=== PATIENT | female | born 1955 | race Caucasian/White ===

== ENCOUNTER 2020-01-30 11:50 | Emergency (ER) | payer OTHER ==
[2020-01-30] MEDS ORDERED: Ondansetron 4 MG/2 ML SDV IVPUSH ONE ×2 (12:12→14:48)
[2020-01-30] MEDS ORDERED: Pantoprazole 40 MG Vial IVPUSH ONE (12:12)
[2020-01-30] MEDS ORDERED: Famotidine 20 MG/2 ML SDV IVPUSH ONE (12:12)
[2020-01-30] MEDS ORDERED: Sodium Chloride 0.9% 10 ML Syringe FLUSH PRN (12:12)
--- NOTE | 2020-01-30 12:12 | EDM.PDOC ---
ED HPI GENERAL MEDICAL PROBLEM - General Chief Complaint: Abdominal Pain Stated Complaint: abd pain/constipation Time Seen by Provider: 01/30/20 12:05 Source of Information: Reports: Patient, Old Records (No [facility] records available) History Limitations: Reports: No Limitations - History of Present Illness INITIAL COMMENTS - FREE TEXT/NARRATIVE: The patient was brought to the emergency room via private automobile by her for evaluation of a 1-2 week history of progressive severe constipation. She began having some nonspecific abdominal cramping about one week ago with OTC laxatives used since that time. Symptoms have worsened since , including nausea, fever, chills and 01/17 mostly lower abdominal cramping. She has not had an excellent bowel movement for about 2 weeks with only a very small BM about 2 days ago. Symptoms have been refractory to OTC fiber and laxatives with patient taking Colace on a twice a day basis, MiraLAX and glycerin suppositories on 01/27 and a fleets enema yesterday evening. No recent history of heartburn, nausea, diarrhea, melena, gross hematochezia, or any food intolerance, including fatty foods, etc.. She denies associated hematuria, colic , UTI symptoms. The patient also denies any recent cough, wheezing, dyspnea, etc.. The patient denies any chest pain/pressure, heart flutter, dizziness, orthostasis, orthopnea, diaphoresis, paresthesias, recent decreased exercise tolerance, or any other anginal-type symptoms. The patient did have a migraine headache earlier this morning with OTC Excedrin Migraine taken both at 3 AM and 7 AM today. Her headache has resolved prior to arrival to this facility. Onset: Gradual Onset Date: 01/28/20 Duration: Constant, Getting Worse Location: Reports: Abdomen. Denies: Head, Face, Neck, Chest, Back, Pelvis, Upper Extremity, Left, Upper Extremity, Right, Lower Extremity, Left, Lower Extremity, Right, Radiates to Quality: Reports: Same as Previous Episode, Other (Cramping) Severity: Moderate Improves with: Reports: None Worsens with: Reports: None Context: Reports: Other (As above). Denies: Sick Contact, Trauma Associated Symptoms: Reports: Fever/Chills, Headaches, Nausea/Vomiting (No emesis). Denies: Confusion, Chest Pain, Cough, Diaphoresis, Loss of Appetite, Malaise, Rash, Shortness of Breath, Syncope, Weakness Treatments ANESTHESIOLOGY TECH: Reports: Other Medication(s) Abdomen Pain Score (Numeric/FACES): 5 - Related Data Allergies Allergy/AdvReac Type Severity Reaction Status Date / Time losartan [From Cozaar] Allergy Cough Verified 01/30/20 11:54 Home Meds: Home Meds Aspirin/Acetaminophen/Caffeine [Excedrin Migraine Caplet] 1 tab PO ASDIRECTED PRN 01/30/20 [History] Docusate Sodium [Colace] 2 cap PO DAILY 01/30/20 [History] Fluticasone/Umeclidin/Vilanter [Trelegy Ellipta 100-62.5-25] 1 inh INH DAILY [History] Glimepiride 2 mg PO DAILY 01/30/20 [History] Magnesium Oxide 400 mg PO BID #60 tab 01/30/20 [Rx] Non-Formulary Medication [NF Drug] 0.25 mg SUBCUT Q7D 01/30/20 [History] Omeprazole 20 mg PO DAILY 01/30/20 [History] Simvastatin 2.5 mg PO BEDTIME 01/30/20 [History] amLODIPine Besylate [Amlodipine Besylate] 5 mg PO DAILY 01/30/20 [History] polyethylene glycoL 3350 [MiraLAX] 1 dose PO DAILY PRN 01/30/20 [History] Past Medical History HEENT History: Reports: Impaired Vision, Other (See Below) Other HEENT History: Patient wears glasses. Cardiovascular History: Reports: High Cholesterol, Hypertension Respiratory History: Reports: COPD Gastrointestinal History: Reports: Chronic Constipation, GERD, Hiatal Hernia. Denies: Colon Polyp, Diverticulosis Genitourinary History: Reports: Chronic Renal Insuffiency, Diabetic Nephropathy TRAIN BRAKER History: Denies: Dysfunctional Uterine Bleeding, Endometriosis, Prolapsed Uterus LMP (Approximate): Other (See Below) Other TRAIN BRAKER History: Surgical menopause. Neurological History: Reports: Headaches, Chronic, Migraines Endocrine/Metabolic History: Reports: Diabetes, Type II, Obesity/BMI 30+. Denies: Diabetes, Gestational, Diabetes, Type I, Diabetes Mellitus, Type 3c, Hypothyroidism, IDDM - Past Surgical History GI Surgical History: Reports: Colonoscopy, EGD, Hernia, Abdominal, Other (See Below). Denies: Appendectomy, Cholecystectomy, Polypectomy Other GI Surgeries/Procedures: Glenn fundoplication with concomitant ventral abdominal hernia repairs 2 in about 2012. EGD and colonoscopy in about 2012. Female Surgical History: Reports: Hysterectomy, Other (See Below). Denies: Salpingo-Oophorectomy Other Female Surgeries/Procedures: Hysterectomy for unknown reason in 2013. 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 ED EXAM, GI/ABD - Physical Exam Exam: See Below Exam Limited By: No Limitations General Appearance: Alert, WD/WN, No Apparent Distress Eyes: Bilateral: Normal Appearance (No nystagmus. Patient wearing glasses), EOMI (PERRLA) Ears: Normal External Exam, Normal Canal, Hearing Grossly Normal, Normal TMs Nose: Normal Inspection, Normal Mucosa, No Blood Throat/Mouth: Normal Inspection, Normal Lips, Normal Teeth, Normal Gums, Normal Oropharynx, Normal Voice, No Airway Compromise. No: Dysphagia, Perioral Cyanosis Head: Atraumatic, Normocephalic. No: Facial Swelling, Facial Tenderness, Sinus Tenderness Neck: Normal Inspection, Supple, Non-Tender, Full Range of Motion. No: Carotid Bruit, Lymphadenopathy (L), Lymphadenopathy (R), Thyromegaly Respiratory/Chest: No Respiratory Distress, Lungs Clear, Normal Breath Sounds, No Accessory Muscle Use, Chest Non-Tender. No: Pleural Rub, Retractions Cardiovascular: Normal Peripheral Pulses, Regular Rate, Rhythm, No Edema, No Gallop, No JVD, No Murmur, No Rub. No: Gallop/S3, Gallop/S4, Friction Rub GI/Abdominal Exam: Normal Bowel Sounds, Soft, Non-Tender, No Organomegaly, No Distention, No Abnormal Bruit, No Mass, Pelvis Stable. No: Guarding (Female) Exam: Deferred Rectal (Female) Exam: Heme - Stool, Hemorrhoids (Grade 2 internal/external). No : Black Stool, Bloody Stool, Fecal Impaction (Minimal stool in vault), Rectal Fissure, Tenderness (No John space tenderness) Back Exam: Normal Inspection, Full Range of Motion. No: CVA Tenderness (L), CVA Tenderness (R), Muscle Spasm, Paraspinal Tenderness, Vertebral Tenderness Extremities: Normal Inspection, Normal Range of Motion, Non-Tender, No Pedal Edema, Normal Capillary Refill. No: Amy's Sign Neurological: Alert, Oriented, CN II-XII Intact, Normal Cognition, Normal Gait, Normal Reflexes (Negative Babinski's), No Motor/Sensory Deficits Psychiatric: Normal Affect, Normal Mood Skin Exam: Warm, Dry, Intact, Normal Color, No Rash. No: Diaphoretic, Ecchymosis, Jaundice, Petechiae, Wound/Incision Lymphatic: No Adenopathy Course - Vital Signs Last Recorded V/S: Last Vital Signs Temp 36.5 C 01/30/20 11:54 Pulse 96 01/30/20 14:24 Resp 18 01/30/20 12:36 BP 164/89 H 01/30/20 14:24 Pulse Ox 98 01/30/20 14:24 Vital Signs - 24 hr 01/30/20 01/30/20 01/30/20 11:54 12:12 12:22 Temperature [ 36.5 C Oral] Pulse, 83 87 88 Peripheral [ Right Pulse Oximetry] Respiratory 16 16 17 Rate Blood Pressure 176/92 H 177/102 H 157/97 H [Left Upper Arm ] O2 Sat by Pulse 98 98 98 Oximetry 01/30/20 01/30/20 01/30/20 12:36 13:24 13:39 Temperature [ Oral] Pulse, 89 93 89 Peripheral [ Right Pulse Oximetry] Respiratory 18 Rate Blood Pressure 170/95 H 154/83 H 155/91 H [Left Upper Arm ] O2 Sat by Pulse 98 98 94 L Oximetry 01/30/20 01/30/20 01/30/20 13:54 14:09 14:24 Temperature [ Oral] Pulse, 91 97 96 Peripheral [ Right Pulse Oximetry] Respiratory Rate Blood Pressure 154/90 H 166/90 H 164/89 H [Left Upper Arm ] O2 Sat by Pulse 97 97 98 Oximetry - Orders/Labs/Meds Orders: Active Orders 24 hr Category Date Time Status Blood Glucose Check, Bedside [RC] STAT Care 01/30/20 14:49 Active Cardiac Monitoring [RC] . DIRECTED Care 01/30/20 12:10 Active Peripheral IV Care [RC] . DIRECTED Care 01/30/20 12:12 Active Abdomen Series w Chest 1V [CR] Stat Exams 01/30/20 12:12 Taken CULTURE URINE [RM] Stat Lab 01/30/20 14:30 Received Obtain Past Medical Record [OM.PC] Urgent Oth 01/30/20 12:12 Active Peripheral IV Insertion Adult [OM.PC] Stat Oth 01/30/20 12:12 Ordered Resuscitation Status Stat Resus Stat 01/30/20 12:12 Ordered Labs: Laboratory Tests 01/30/20 01/30/20 01/30/20 Range/Units 12:20 12:20 12:20 WBC 10.2 (4.0-10.2) K/uL RBC 4.49 (3.77-5.09) M/uL Hgb 13.7 (11.7-15.5) g/dL Hct 40.0 (34.0-46.0) % MCV 89.1 (84.0-98.0) fL MCH 30.5 (28.2-33.3) pg MCHC 34.3 (31.7-36.0) g/dL RDW 12.4 (11.2-14.1) % Plt Count 188 (150-350) K/uL Neut % (Auto) 84.4 H (45.0-80.0) % Lymph % (Auto) 12.5 (10.0-50.0) % Daniels % (Auto) 2.8 (2.0-14.0) % Eos % (Auto) 0.2 (0.0-5.0) % Baso % (Auto) 0.1 (0.0-2.0) % Neut # (Auto) 8.59 H (1.40-7.00) K/uL Lymph # (Auto) 1.27 (0.50-3.50) K/uL Daniels # (Auto) 0.28 (0.00-1.00) K/uL Eos # (Auto) 0.02 (0.00-0.50) K/uL Baso # (Auto) 0.01 (0.00-0.20) K/uL PT 10.5 (9.5-12.0) SEC INR 1.0 APTT 22.7 L (24.5-32.8) SEC Sodium (136-145) mmol/L Potassium (3.5-5.1) mmol/L Chloride (98-107) mmol/L Carbon Dioxide (21.0-32.0) mmol/L BUN (7-18) mg/dL Creatinine (0.51-1.17) mg/dL Est Cr Clr Drug Dosing Estimated GFR (MDRD) mL/min Glucose (74-106) mg/dL POC Glucose (65-110) mg/dl Lactic Acid (0.4-2.0) mmol/L Uric Acid (2.6-7.2) mg/dL Calcium (8.5-10.1) mg/dL Magnesium (1.8-2.4) mg/dL Total Bilirubin (0.2-1.0) mg/dL AST (15-37) U/L ALT (12-78) U/L Alkaline Phosphatase (46-116) IU/L Total Protein (6.4-8.2) g/dL Albumin (3.4-5.0) g/dL Amylase 39 (25-115) U/L Lipase (73-393) U/L Specimen Type Urine Color Urine Appearance Urine pH (5.0-9.0) Ur Specific [place] (1.005-1.030) Urine Protein (NEGATIVE) mg/dL Urine Glucose (UA) (NEGATIVE) mg/dL Urine Ketones (NEGATIVE) mg/dL Urine Occult Blood (NEGATIVE) Urine Nitrite (NEGATIVE) Urine Bilirubin (NEGATIVE) Urine Urobilinogen (0.2-1.0) E.U./dL Ur Leukocyte Esterase (NEGATIVE) Urine RBC /HPF Urine WBC /HPF Ur Epithelial Cells /LPF Urine Bacteria (NONE TO FEW) /HPF 01/30/20 01/30/20 01/30/20 Range/Units 12:20 12:20 14:30 WBC (4.0-10.2) K/uL RBC (3.77-5.09) M/uL Hgb (11.7-15.5) g/dL Hct (34.0-46.0) % MCV (84.0-98.0) fL MCH (28.2-33.3) pg MCHC (31.7-36.0) g/dL RDW (11.2-14.1) % Plt Count (150-350) K/uL Neut % (Auto) (45.0-80.0) % Lymph % (Auto) (10.0-50.0) % Daniels % (Auto) (2.0-14.0) % Eos % (Auto) (0.0-5.0) % Baso % (Auto) (0.0-2.0) % Neut # (Auto) (1.40-7.00) K/uL Lymph # (Auto) (0.50-3.50) K/uL Daniels # (Auto) (0.00-1.00) K/uL Eos # (Auto) (0.00-0.50) K/uL Baso # (Auto) (0.00-0.20) K/uL PT (9.5-12.0) SEC INR APTT (24.5-32.8) SEC Sodium 140 (136-145) mmol/L Potassium 3.7 (3.5-5.1) mmol/L Chloride 101 (98-107) mmol/L Carbon Dioxide 29.0 (21.0-32.0) mmol/L BUN 29 H (7-18) mg/dL Creatinine 1.34 H (0.51-1.17) mg/dL Est Cr Clr Drug Dosing TNP Estimated GFR (MDRD) 40 mL/min Glucose 167 H (74-106) mg/dL POC Glucose (65-110) mg/dl Lactic Acid 1.0 (0.4-2.0) mmol/L Uric Acid 6.7 (2.6-7.2) mg/dL Calcium 10.1 (8.5-10.1) mg/dL Magnesium 1.1 L (1.8-2.4) mg/dL Total Bilirubin 0.5 (0.2-1.0) mg/dL AST 41 H (15-37) U/L ALT 42 (12-78) U/L Alkaline Phosphatase 98 (46-116) IU/L Total Protein 7.0 (6.4-8.2) g/dL Albumin 4.1 (3.4-5.0) g/dL Amylase (25-115) U/L Lipase 164 (73-393) U/L Specimen Type Urinvoid Urine Color Light yellow Urine Appearance Clear Urine pH 7.0 (5.0-9.0) Ur Specific [place] 1.020 (1.005-1.030) Urine Protein Trace H (NEGATIVE) mg/dL Urine Glucose (UA) Negative (NEGATIVE) mg/dL Urine Ketones Trace H (NEGATIVE) mg/dL Urine Occult Blood Trace-lysed H (NEGATIVE) Urine Nitrite Negative (NEGATIVE) Urine Bilirubin Negative (NEGATIVE) Urine Urobilinogen 0.2 (0.2-1.0) E.U./dL Ur Leukocyte Esterase Negative (NEGATIVE) Urine RBC 0-5 /HPF Urine WBC 0-5 /HPF Ur Epithelial Cells Few /LPF Urine Bacteria Few (NONE TO FEW) /HPF 01/30/20 Range/Units 14:52 WBC (4.0-10.2) K/uL RBC (3.77-5.09) M/uL Hgb (11.7-15.5) g/dL Hct (34.0-46.0) % MCV (84.0-98.0) fL MCH (28.2-33.3) pg MCHC (31.7-36.0) g/dL RDW (11.2-14.1) % Plt Count (150-350) K/uL Neut % (Auto) (45.0-80.0) % Lymph % (Auto) (10.0-50.0) % Daniels % (Auto) (2.0-14.0) % Eos % (Auto) (0.0-5.0) % Baso % (Auto) (0.0-2.0) % Neut # (Auto) (1.40-7.00) K/uL Lymph # (Auto) (0.50-3.50) K/uL Daniels # (Auto) (0.00-1.00) K/uL Eos # (Auto) (0.00-0.50) K/uL Baso # (Auto) (0.00-0.20) K/uL PT (9.5-12.0) SEC INR APTT (24.5-32.8) SEC Sodium (136-145) mmol/L Potassium (3.5-5.1) mmol/L Chloride (98-107) mmol/L Carbon Dioxide (21.0-32.0) mmol/L BUN (7-18) mg/dL Creatinine (0.51-1.17) mg/dL Est Cr Clr Drug Dosing Estimated GFR (MDRD) mL/min Glucose (74-106) mg/dL POC Glucose 125 H (65-110) mg/dl Lactic Acid (0.4-2.0) mmol/L Uric Acid (2.6-7.2) mg/dL Calcium (8.5-10.1) mg/dL Magnesium (1.8-2.4) mg/dL Total Bilirubin (0.2-1.0) mg/dL AST (15-37) U/L ALT (12-78) U/L Alkaline Phosphatase (46-116) IU/L Total Protein (6.4-8.2) g/dL Albumin (3.4-5.0) g/dL Amylase (25-115) U/L Lipase (73-393) U/L Specimen Type Urine Color Urine Appearance Urine pH (5.0-9.0) Ur Specific [place] (1.005-1.030) Urine Protein (NEGATIVE) mg/dL Urine Glucose (UA) (NEGATIVE) mg/dL Urine Ketones (NEGATIVE) mg/dL Urine Occult Blood (NEGATIVE) Urine Nitrite (NEGATIVE) Urine Bilirubin (NEGATIVE) Urine Urobilinogen (0.2-1.0) E.U./dL Ur Leukocyte Esterase (NEGATIVE) Urine RBC /HPF Urine WBC /HPF Ur Epithelial Cells /LPF Urine Bacteria (NONE TO FEW) /HPF Urine specimen set up for culture and sensitivity. Meds: Medications Discontinued Medications Generic Name Dose Route Start Last Admin Trade Name Freq PRN Reason Stop Dose Admin Famotidine 40 mg 01/30/20 12:12 01/30/20 12:31 Pepcid IVPUSH 01/30/20 12:13 40 mg ONETIME ONE Administration Lactated Ringer's 1,000 mls @ 999 mls/hr 01/30/20 12:12 01/30/20 13:25 Ringers, Lactated IV 01/30/20 13:12 999 mls/hr .BOLUS ONE Administration Magnesium Sulfate 4 gm/ Premix 100 mls @ 200 mls/hr 01/30/20 12:59 01/30/20 13:09 IV 01/30/20 13:28 200 mls/hr ONETIME ONE Administration Ondansetron HCl 4 mg 01/30/20 12:12 01/30/20 12:31 Zofran IVPUSH 01/30/20 12:13 4 mg ONETIME ONE Administration Ondansetron HCl 4 mg 01/30/20 14:48 01/30/20 14:54 Zofran IVPUSH 01/30/20 14:49 4 mg ONETIME ONE Administration Pantoprazole Sodium 40 mg 01/30/20 12:12 01/30/20 12:31 Protonix Iv IVPUSH 01/30/20 12:13 40 mg ONETIME ONE Administration Sodium Chloride 10 ml 01/30/20 12:12 01/30/20 14:55 Saline Flush FLUSH 10 ml ASDIRECTED PRN Administration Keep Vein Open - Radiology Interpretation Free Text/Narrative:: school lunch monitor shows normal sinus rhythm with heart rate in the 70s with no ectopy or arrhythmia. Acute abdominal x-rays shows evidence of mild COPD changes with mild diffuse stool and nonspecific bowel gaseous pattern with no evidence of free air, fluid levels, ileus, obstruction, cardiomegaly, CHF, pulmonary infiltrates, pneumothorax, etc.. Multiple surgical clips noted in the abdominal region. Departure - Departure Time of Disposition: 15:39 Disposition: Home, Self-Care 01 Condition: Good Clinical Impression: Peptic reflux disease, LFT elevation, Hypomagnesemia, Renal insufficiency Abdominal pain Qualifiers: Abdominal location: lower abdomen, unspecified Qualified Code(s): R10.30 - Lower abdominal pain, unspecified Hypertension Qualifiers: Hypertension type: essential hypertension Qualified Code(s): I10 - Essential ( primary) hypertension COPD (chronic obstructive pulmonary disease) Qualifiers: COPD type: emphysema Emphysema type: panlobular Qualified Code(s): J43.1 - Panlobular emphysema Diabetes mellitus Qualifiers: Diabetes mellitus type: type 2 Diabetes mellitus [facility] insulin use: without exterminator use Diabetes mellitus complication status: with kidney complications Diabetes mellitus complication detail: with chronic kidney disease Chronic kidney disease stage: stage 2 (mild) Qualified Code(s): E11.22 - Type 2 diabetes mellitus with diabetic chronic kidney disease Osteoarthritis Qualifiers: Osteoarthritis location: multiple joints Osteoarthritis type: primary Qualified Code(s): M89.49 - Other hypertrophic osteoarthropathy, multiple sites Hyperlipidemia Qualifiers: Hyperlipidemia type: other hyperlipidemia Qualified Code(s): E78.49 - Other hyperlipidemia - Discharge Information *PRESCRIPTION DRUG MONITORING PROGRAM REVIEWED*: Not Applicable *COPY OF PRESCRIPTION DRUG MONITORING REPORT IN PATIENT JOE: Not Applicable Prescriptions: Magnesium Oxide 400 mg PO BID #60 tab Instructions: Constipation, Adult, [id number]-[id number], Abdominal Pain, Adult, Easy-to -Read Referrals: PCP,Unknown [Ordering Only Provider] - Forms: ED Department Discharge, ED Return to Work/School Form Additional Instructions: 1. Followup with your regular provider in 7-10 days as directed for reevaluation and recommended repeat magnesium level, comprehensive metabolic panel, and CBC in addition already previously ordered blood work, etc. Attempt to reschedule your 02/15 appointment for earlier as above. Bring these discharge instructions with you to that visit. 2. Initiate your magnesium oxide tomorrow morning 3. Your bowel movement goal should be an excellent bowel movement at least every 2 days as discussed with increase of your as needed MiraLAX to achieve this goal. 4. Daisy diet including encouragement of oral fluids such as sports drinks, etc. for 24-48 hours as directed. Advance to previous ADA, heart healthy, high- fiber diet as tolerated thereafter. 6. Use one bottle of OTC magnesium citrate later today only and mix with 1 capful of MiraLAX as discussed 7. Work excuse- See Form 8. Immediately after this visit verify that your cellular telephone's voicemail has been activated and is empty. Also verify that your home telephone 's answering machine is operating properly and has space to receive messages. Note that it is sometimes necessary for us to be able to contact you at a later date to discuss your medical care. 9. Please remember that we are ALWAYS here for you and want to answer any questions you may have. Feel free to call the hospital any time and we call you back LOLY. Sepsis Event Note - Evaluation Sepsis Screening Result: No Definite Risk - Focused Exam Vital Signs: Vital Signs Temp Pulse Resp BP Pulse Ox 01/30/20 14:24 96 164/89 H 98 01/30/20 14:09 97 166/90 H 97 01/30/20 13:54 91 154/90 H 97 01/30/20 13:39 89 155/91 H 94 L 01/30/20 13:24 93 154/83 H 98 01/30/20 12:36 89 18 170/95 H 98 01/30/20 12:22 88 17 157/97 H 98 01/30/20 12:12 87 16 177/102 H 98 01/30/20 11:54 36.5 C 83 16 176/92 H 98 Date Exam was Performed: 01/30/20 Time Exam was Performed: 21:34 - Problem List & Annotations (1) Abdominal pain SNOMED Code(s): 98913943 Code(s): R10.9 - UNSPECIFIED ABDOMINAL PAIN Status: Acute Priority: High Annotation/Comment:: Various therapeutic options were discussed with the patient, who does not wish to be hospitalized for further treatment and evaluation at this time. Abdominal pain likely secondary to her chronic constipation. Patient is requesting that she take MiraLAX with magnesium citrate after she gets home with patient extensively counseled concerning not using magnesium citrate on a regular basis, laxative abuse, etc.. Close follow- up by regular provider with further GI workup depending on her clinical course. Bowel treatment regimen, including high-fiber diet, bowel movement goals, etc. were extensively discussed. Possible beginning diabetic gastroenteropathy with additional risk factors including previous abdominal surgeries, etc. as above. No indication for CT scan of the abdomen and pelvis at this time. Symptoms improved at time of discharge. Qualifiers: Abdominal location: lower abdomen, unspecified Qualified Code(s): R10.30 - Lower abdominal pain, unspecified (2) Peptic reflux disease SNOMED Code(s): 741410047 Code(s): K21.9 - GASTRO-ESOPHAGEAL REFLUX DISEASE WITHOUT ESOPHAGITIS Status: Chronic Priority: Medium Annotation/Comment:: Stable with current medical therapy. Note previous Glenn fundoplication. (3) Hypomagnesemia SNOMED Code(s): 751663510 Code(s): E83.42 - HYPOMAGNESEMIA Status: Acute Priority: High Onset Date: 01/30/20 Annotation/Comment:: As above. (4) Hypertension SNOMED Code(s): 80444064 Code(s): I10 - ESSENTIAL (PRIMARY) HYPERTENSION Status: Acute Annotation/ Comment:: Blood pressures were somewhat elevated in the emergency room. Continue to observe closely by her regular provider. Note magnesium sulfate given IM in the emergency room with additional magnesium oxide therapy, which should be beneficial both for her chronic constipation and migraine headaches. Close follow-up by her regular provider as per discharge instructions especially in light of her mild renal insufficiency. Qualifiers: Hypertension type: essential hypertension Qualified Code(s): I10 - Essential (primary) hypertension (5) COPD (chronic obstructive pulmonary disease) SNOMED Code(s): 37390626 Code(s): J44.9 - CHRONIC OBSTRUCTIVE PULMONARY DISEASE, UNSPECIFIED Status : Chronic Priority: Medium Annotation/Comment:: No recent fever or bronchitic type symptoms. Qualifiers: COPD type: emphysema Emphysema type: panlobular Qualified Code(s): J43.1 - Panlobular emphysema (6) Diabetes mellitus SNOMED Code(s): 24367889 Code(s): E11.9 - TYPE 2 DIABETES MELLITUS WITHOUT COMPLICATIONS Status: Chronic Priority: Medium Annotation/Comment:: Good control by patient history with home Accu-Cheks averaging in the 140s to 150s with Accu-Chek taken on a 3 times a day to 4 times a day basis. Qualifiers: Diabetes mellitus type: type 2 Diabetes mellitus [facility] insulin use: without exterminator use Diabetes mellitus complication status: with kidney complications Diabetes mellitus complication detail: with chronic kidney disease Chronic kidney disease stage: stage 2 (mild) Qualified Code(s): E11.22 - Type 2 diabetes mellitus with diabetic chronic kidney disease; N18.2 - Chronic kidney disease, stage 2 (mild) (7) Osteoarthritis SNOMED Code(s): 940379160 Code(s): M19.90 - UNSPECIFIED OSTEOARTHRITIS, UNSPECIFIED SITE Status: Chronic Priority: Medium Annotation/Comment:: Stable by history Qualifiers: Osteoarthritis location: multiple joints Osteoarthritis type: primary Qualified Code(s): M89.49 - Other hypertrophic osteoarthropathy, multiple sites (8) Hyperlipidemia SNOMED Code(s): 30721656 Code(s): E78.5 - HYPERLIPIDEMIA, UNSPECIFIED Status: Chronic Priority: Medium Annotation/Comment:: Continue current medical therapy. Close follow-up by regular provider. Qualifiers: Hyperlipidemia type: other hyperlipidemia Qualified Code(s): E78.49 - Other hyperlipidemia; E78.4 - Other hyperlipidemia (9) LFT elevation SNOMED Code(s): 293832570, 737142254 Code(s): R79.89 - OTHER SPECIFIED ABNORMAL FINDINGS OF BLOOD CHEMISTRY Status: Acute Priority: Medium Onset Date: 01/30/20 Annotation/Comment:: Possibly secondary to fatty liver. Observe for now. (10) Renal insufficiency SNOMED Code(s): 009867179, 692517815 Code(s): N28.9 - DISORDER OF KIDNEY AND URETER, UNSPECIFIED Status: Chronic Priority: Medium Annotation/Comment:: Mild diabetic nephropathy. Note status post nephrectomy for benign disease as above. - Problem List Review Problem List Initiated/Reviewed/Updated: Yes - My Orders Last 24 Hours: My Active Orders 01/30/20 12:10 Cardiac Monitoring [RC] . DIRECTED 01/30/20 12:12 Peripheral IV Care [RC] . DIRECTED Abdomen Series w Chest 1V [CR] Stat Obtain Past Medical Record [OM.PC] Urgent Peripheral IV Insertion Adult [OM.PC] Stat Resuscitation Status Stat 01/30/20 14:30 CULTURE URINE [RM] Stat 01/30/20 14:49 Blood Glucose Check, Bedside [RC] STAT - Assessment/Plan Last 24 Hours: My Active Orders 01/30/20 12:10 Cardiac Monitoring [RC] . DIRECTED 01/30/20 12:12 Peripheral IV Care [RC] . DIRECTED Abdomen Series w Chest 1V [CR] Stat Obtain Past Medical Record [OM.PC] Urgent Peripheral IV Insertion Adult [OM.PC] Stat Resuscitation Status Stat 01/30/20 14:30 CULTURE URINE [RM] Stat 01/30/20 14:49 Blood Glucose Check, Bedside [RC] STAT Assessment:: As above Plan: As above. Extensive precautions were given to the patient and her by telephone, who are in agreement with the treatment plan. See Patient Instructions for further treatment and plan.
[2020-01-30] MEDS: Lactated Ringers 1,000 ML IV ONE ×2 (12:31→13:25)
[2020-01-30 12:43] LABS: PTT,PARTIAL THROMBOPLSTIN TIME 22.7 SEC (24.5-32.8)
[2020-01-30 12:44] LABS: CHLORIDE,CL 101 mmol/L (98-107); SODIUM,NA 140 mmol/L (136-145)
[2020-01-30] MEDS ORDERED: Magnesium Sulfate/Water 4 GM in Premix Bag 1 BAG IV ONE (12:59)
== END 2020-01-30 15:39 | disposition home or self-care (01) ==
LOC: LL.ED 11:50
DX: K27.9 Peptic ulcer, site unspecified, unspecified as acute or chronic, without hemorrhage or perforation (principal); R79.89 Other specified abnormal findings of blood chemistry; E83.42 Hypomagnesemia; J43.1 Panlobular emphysema; I12.9 Hypertensive chronic kidney disease with stage 1 through stage 4 chronic kidney disease, or unspecified chronic kidney disease; E11.22 Type 2 diabetes mellitus with diabetic chronic kidney disease; N18.9 Chronic kidney disease, unspecified; M89.48 Other hypertrophic osteoarthropathy, other site; E66.9 Obesity, unspecified; E11.21 Type 2 diabetes mellitus with diabetic nephropathy; E78.49 Other hyperlipidemia; Z79.82 Long term (current) use of aspirin; Z79.899 Other long term (current) drug therapy; Z88.8 Allergy status to other drugs, medicaments and biological substances; Z79.84 Long term (current) use of oral hypoglycemic drugs
CPT/HCPCS: 36415; 74022; 80053; 81001; 82150; 82272; 82962; 83605; 83690; 83735; 84550; 85025; 85610; 85730; 87086; 96361; 96365; 96375; 96376; 99284-25; C9113; J2405; J3475; J3490; J7120